=== PATIENT | female | born 1955 | race Two or more races ===

== ENCOUNTER 2023-03-27 21:37 | Inpatient (IN) | payer MEDICAID, OTHER ==
[~2023-03-27] VITALS: Ht 162.6 cm; Wt 53.4 kg
[2023-03-27 23:00] LABS: Basophils # (auto) 0 10 ^3/uL (0-0.2); Basophils % (auto) 0.8 % (0.0-2.0); Eosinophils # (auto) 0.1 10 ^3/uL (0-0.8); Eosinophils % (auto) 1.9 % (0.0-7.0); Hematocrit 31.5 % (36.0-46.0); Hemoglobin 10.4 g/dL (12.2-16.2); Mean Corpuscular Hemoglobin 28.3 pg (28.0-32.0); Mean Corpuscular Volume 85.8 fL (80.0-100.0); Monocytes # (auto) 0.3 10 ^3/uL (0-1.3); Monocytes % (auto) 5.6 % (0.0-12.0); Neutrophils # (auto) 4.4 10 ^3/uL (1.6-8.6); Neutrophils % (auto) 74.7 % (37.0-80.0); Nucleated Red Blood Cells % 0.1 %; Red Blood Cells 3.67 10^6/uL (4.0-5.20); Red Cell Distribution Width 14.3 % (11.8-14.3)
[2023-03-27 23:06] VITALS: PULSE 72; RESP 14; O2SAT 90
[2023-03-27 23:23] LABS: Alanine Aminotransferase 11 U/L (7-40); Albumin 2.9 g/dL (3.2-4.8); Alkaline Phosphatase 65 U/L (46-116); Anion Gap 8 (5-15); Aspartate Aminotransferase 17 U/L (13-40); BUN/Creatinine Ratio 17.2 (10.0-20.0); Bilirubin, Total 0.2 mg/dL (0.2-1.0); Blood Urea Nitrogen 28 mg/dL (9-23); Calcium 8.6 mg/dL (8.7-10.4); Carbon Dioxide 24 mmol/L (20-30); Chloride 110 mmol/L (98-107); Glucose 117 mg/dL (74-106); Magnesium 2.6 mg/dL (1.6-2.6); Potassium 4.4 mmol/L (3.5-5.1); Sodium 142 mmol/L (136-145); Total Protein 6.2 g/dL (5.7-8.2)
[2023-03-27 23:24] LABS: INR 1.06 (0.9-1.15); Partial Thromboplastin Time 30.9 SEC (24.5-34.5); Prothrombin Time 11.1 sec (9.3-11.8)
[2023-03-28] VITALS (8 sets, daily range): BP systolic 163–168; BP diastolic 72–78; PULSE 20–102; RESP 18–20; TEMP 98.1–98.7; O2SAT 94–98
[2023-03-28] MEDS ORDERED: DexAMETHasone SOD PHOS 10MG/1ML VIAL INJ IV ONE (01:30)
[2023-03-28] MEDS ORDERED: ALBUTEROL SULF 2.5 MG/0.5ML(0.5%) NEB SOLN NEB ONE (01:30)
[2023-03-28] MEDS ORDERED: FUROSEMIDE 40 MG/4 ML VIAL IV ONE ×2 (01:30→20:30)
[2023-03-28] MEDS ORDERED: ENOXAPARIN SOD 80 MG/0.8ML SYRINGE SC ONE (01:30)
[2023-03-28] MEDS ORDERED: IPRATROPIUM BROM 0.5 MG/2.5ML INH SOL NEB ONE (01:30)
[2023-03-28] MEDS ORDERED: PIPERACILLIN-TAZOB 3.375GM 100 ML IV ONE (01:30)
[2023-03-28] MEDS ORDERED: DEXTROSE (50%) 50ML SYRG IV PRN (04:15)
[2023-03-28] MEDS ORDERED: ONDANSETRON HCL 4 MG/2 ML VIAL IV PRN (04:15)
[2023-03-28] MEDS ORDERED: ALBUTEROL SULF 2.5 MG/0.5ML(0.5%) NEB SOLN NEB PRN (04:15)
[2023-03-28] MEDS ORDERED: ACETAMINOPHEN 325 MG TAB PO PRN (04:15)
[2023-03-28] MEDS ORDERED: MORPHINE SULFATE INJ 2 MG/ml SYRG IV PRN (04:15)
[2023-03-28] MEDS ORDERED: NITROGLYCERIN 0.4 MG SL TAB SL PRN (04:15)
[2023-03-28 05:40] LABS: Urine Bacteria NONE SEEN /hpf (None Seen); Urine Blood TRACE /uL (Negative); Urine Clarity Clear (Clear); Urine Color Colorless (Yellow); Urine Hyaline Cast FEW /lpf (0 - 2); Urine Protein, UAD 3+ (Negative); Urine Specific Gravity 1.016 (1.001-1.035); Urine Urobilinogen Normal (Negative); Urine WBC 1 /hpf (0 - 5)
[2023-03-28] MEDS: InsuLIN REG 1unit/0.01ml Soln (100units/ml) SC SCH ×4 (07:00→22:18)
[2023-03-28] MEDS: FUROSEMIDE 40 MG TAB PO SCH ×2 (07:03→18:51)
[2023-03-28] MEDS: hydrALAZINE HCL 25 MG TAB PO SCH ×2 (07:03→16:42)
[2023-03-28] MEDS: ACCU-CHEK COMFORT CURVE STRIP VI SCH ×4 (07:14→22:17)
[2023-03-28] MEDS: SPIRONOLACTONE 25 MG TAB PO SCH (11:27)
[2023-03-28] MEDS: LOSARTAN POTASSIUM 50 MG TAB PO SCH (11:28)
[2023-03-28] MEDS: LABETALOL HCL 200 MG TAB PO SCH ×2 (16:30→22:28)
[2023-03-28 18:29] LABS: COVID19 ANTIGEN SOFIA FIA NEGATIVE (NEGATIVE)
[2023-03-28 18:33] LABS: Rapid Influenza A Negative (Negative); Rapid Influenza B Negative (Negative)
[2023-03-28] MEDS ORDERED: hydrALAZINE HCL 20 MG/ML VL IV ONE (20:45)
[2023-03-28] MEDS ORDERED: ENOXAPARIN SOD 100 MG/1 ML SYRINGE SC SCH (22:00)
[2023-03-28] MEDS: hydrALAZINE HCL 20 MG/ML VL IV PRN (22:56)
[2023-03-29] VITALS (10 sets, daily range): BP systolic 130–173; BP diastolic 61–83; PULSE 74–82; RESP 14–18; TEMP 97.8–98.4; O2SAT 92–96
[2023-03-29] MEDS ORDERED: FUROSEMIDE 40 MG/4 ML VIAL IV SCH (06:00)
[2023-03-29 07:00] LABS: Basophils # (auto) 0 10 ^3/uL (0-0.2); Basophils % (auto) 0.7 % (0.0-2.0); Eosinophils # (auto) 0.1 10 ^3/uL (0-0.8); Hemoglobin 8.7 g/dL (12.2-16.2); Lymphocytes # (auto) 1.3 10 ^3/uL (0.4-5.4); Lymphocytes % (auto) 24.7 % (10.0-50.0); Mean Corpuscular Hemoglobin 28.5 pg (28.0-32.0); Mean Corpuscular Hgb Conc. 33.3 g/dL (32.0-36.0); Mean Corpuscular Volume 85.7 fL (80.0-100.0); Monocytes # (auto) 0.4 10 ^3/uL (0-1.3); Monocytes % (auto) 6.7 % (0.0-12.0); Neutrophils # (auto) 3.6 10 ^3/uL (1.6-8.6); Neutrophils % (auto) 66.9 % (37.0-80.0); Red Blood Cells 3.04 10^6/uL (4.0-5.20); Red Cell Distribution Width 14.2 % (11.8-14.3); White Blood Cell 5.4 10^3/uL (4.4-10.8)
[2023-03-29 07:02] LABS: Alanine Aminotransferase 13 U/L (7-40); Albumin 2.5 g/dL (3.2-4.8); Alkaline Phosphatase 53 U/L (46-116); Anion Gap 9 (5-15); Aspartate Aminotransferase 18 U/L (13-40); BUN/Creatinine Ratio 17.8 (10.0-20.0); Bilirubin, Total < 0.2 mg/dL (0.2-1.0); Blood Urea Nitrogen 30 mg/dL (9-23); Calcium 8.4 mg/dL (8.5-10.1); Carbon Dioxide 25 mmol/L (20-30); Chloride 111 mmol/L (98-107); Glucose 91 mg/dL (74-106); Potassium 3.6 mmol/L (3.5-5.1); Sodium 145 mmol/L (136-145); Total Protein 5.1 g/dL (5.7-8.2)
[2023-03-29] MEDS: InsuLIN REG 1unit/0.01ml Soln (100units/ml) SC SCH ×3 (08:13→21:39)
[2023-03-29] MEDS: ACCU-CHEK COMFORT CURVE STRIP VI SCH ×3 (08:13→21:35)
[2023-03-29] MEDS: SPIRONOLACTONE 25 MG TAB PO SCH (08:45)
[2023-03-29] MEDS: LABETALOL HCL 200 MG TAB PO SCH ×2 (08:45→21:34)
[2023-03-29] MEDS: LOSARTAN POTASSIUM 50 MG TAB PO SCH (08:45)
[2023-03-29] MEDS ORDERED: ENOXAPARIN SOD 40 MG/0.4 ML SYRINGE SC SCH (10:00)
[2023-03-29 14:48] LABS: Body Fluid Polymorphonuclear 8 % (0-25); Body Fluid Red Blood Cells 225 CUMM (0-2000); Body Fluid White Blood Cells 90 CUMM (0-200)
[2023-03-29] MEDS: hydrALAZINE HCL 20 MG/ML VL IV PRN (21:35)
[2023-03-30] VITALS (11 sets, daily range): BP systolic 108–186; BP diastolic 56–86; PULSE 72–99; RESP 14–18; TEMP 98–98.9; O2SAT 91–98
[2023-03-30] MEDS: hydrALAZINE HCL 20 MG/ML VL IV PRN ×3 (03:38→23:12)
[2023-03-30] MEDS: FUROSEMIDE 100 MG/10ML VIAL IV SCH ×2 (05:56→17:57)
[2023-03-30] MEDS: ACCU-CHEK COMFORT CURVE STRIP VI SCH ×4 (06:02→21:41)
[2023-03-30 06:26] LABS: Basophils # (auto) 0 10 ^3/uL (0-0.2); Basophils % (auto) 0.7 % (0.0-2.0); Eosinophils # (auto) 0.1 10 ^3/uL (0-0.8); Eosinophils % (auto) 1.9 % (0.0-7.0); Hematocrit 24.4 % (36.0-46.0); Hemoglobin 8.2 g/dL (12.2-16.2); Lymphocytes # (auto) 1.5 10 ^3/uL (0.4-5.4); Lymphocytes % (auto) 28.1 % (10.0-50.0); Mean Corpuscular Hemoglobin 28.7 pg (28.0-32.0); Mean Corpuscular Hgb Conc. 33.7 g/dL (32.0-36.0); Mean Corpuscular Volume 85.3 fL (80.0-100.0); Monocytes # (auto) 0.3 10 ^3/uL (0-1.3); Monocytes % (auto) 6.3 % (0.0-12.0); Neutrophils # (auto) 3.4 10 ^3/uL (1.6-8.6); Nucleated Red Blood Cells % 0.1 %; Red Blood Cells 2.86 10^6/uL (4.0-5.20); White Blood Cell 5.3 10^3/uL (4.4-10.8)
[2023-03-30 06:33] LABS: Anion Gap 11 (5-15); Carbon Dioxide 23 mmol/L (20-30); Chloride 110 mmol/L (98-107); Potassium 3.3 mmol/L (3.5-5.1); Sodium 144 mmol/L (136-145)
[2023-03-30 06:34] LABS: Calcium 8.3 mg/dL (8.5-10.1)
[2023-03-30] MEDS: InsuLIN REG 1unit/0.01ml Soln (100units/ml) SC SCH ×4 (06:34→21:41)
[2023-03-30 06:39] LABS: BUN/Creatinine Ratio 17.6 (10.0-20.0); Blood Urea Nitrogen 27 mg/dL (9-23); Glucose 89 mg/dL (74-106)
[2023-03-30] MEDS ORDERED: POTASSIUM EFFERVESENT TAB 25 MEQ PO ONE (08:00)
[2023-03-30] MEDS: ENOXAPARIN SOD 30 MG/0.3 ML SYRINGE SC SCH (09:02)
[2023-03-30] MEDS: LABETALOL HCL 200 MG TAB PO SCH ×2 (09:03→21:38)
[2023-03-30] MEDS: SPIRONOLACTONE 25 MG TAB PO SCH (09:03)
[2023-03-31] VITALS (7 sets, daily range): BP systolic 142–186; BP diastolic 61–81; PULSE 70–81; RESP 16–18; TEMP 97.8–98.3; O2SAT 94–98
[2023-03-31] MEDS ORDERED: LABE200T6 PO (04:58)
[2023-03-31] MEDS ORDERED: ASPI1CHW5 PO (04:58)
[2023-03-31] MEDS ORDERED: DONE5TAB80 PO (04:58)
[2023-03-31] MEDS ORDERED: ASPI-628 PO (04:58)
[2023-03-31] MEDS ORDERED: LOSA100T58 PO (04:58)
[2023-03-31] MEDS ORDERED: HYDR25TA87 PO (04:58)
[2023-03-31] MEDS ORDERED: SPIR25TA8 PO (04:58)
[2023-03-31] MEDS ORDERED: AMLO1TAB22 PO (04:58)
[2023-03-31] MEDS ORDERED: FURO40TA4 PO (04:58)
[2023-03-31] MEDS ORDERED: METF-370 PO (04:58)
[2023-03-31] MEDS: FUROSEMIDE 100 MG/10ML VIAL IV SCH ×2 (05:44→17:52)
[2023-03-31 06:06] LABS: Basophils # (auto) 0 10 ^3/uL (0-0.2); Basophils % (auto) 0.7 % (0.0-2.0); Eosinophils # (auto) 0.1 10 ^3/uL (0-0.8); Eosinophils % (auto) 2.6 % (0.0-7.0); Hematocrit 26.3 % (36.0-46.0); Hemoglobin 8.6 g/dL (12.2-16.2); Lymphocytes # (auto) 1.1 10 ^3/uL (0.4-5.4); Lymphocytes % (auto) 21.5 % (10.0-50.0); Mean Corpuscular Hemoglobin 27.8 pg (28.0-32.0); Mean Corpuscular Hgb Conc. 32.6 g/dL (32.0-36.0); Mean Corpuscular Volume 85.3 fL (80.0-100.0); Monocytes # (auto) 0.3 10 ^3/uL (0-1.3); Monocytes % (auto) 6.4 % (0.0-12.0); Neutrophils # (auto) 3.7 10 ^3/uL (1.6-8.6); Neutrophils % (auto) 68.8 % (37.0-80.0); Nucleated Red Blood Cells % 0.1 %; Red Blood Cells 3.08 10^6/uL (4.0-5.20); Red Cell Distribution Width 13.8 % (11.8-14.3); White Blood Cell 5.3 10^3/uL (4.4-10.8)
[2023-03-31 06:24] LABS: Calcium 8.3 mg/dL (8.5-10.1); Chloride 107 mmol/L (98-107); Potassium 3.5 mmol/L (3.5-5.1); Sodium 142 mmol/L (136-145)
[2023-03-31 06:25] LABS: Anion Gap 10 (5-15); Carbon Dioxide 25 mmol/L (20-30)
[2023-03-31 06:30] LABS: BUN/Creatinine Ratio 18.8 (10.0-20.0); Blood Urea Nitrogen 27 mg/dL (9-23); Glucose 97 mg/dL (74-106)
[2023-03-31] MEDS: InsuLIN REG 1unit/0.01ml Soln (100units/ml) SC SCH ×4 (07:00→22:17)
[2023-03-31] MEDS: ACCU-CHEK COMFORT CURVE STRIP VI SCH ×4 (07:00→22:08)
[2023-03-31] MEDS: SPIRONOLACTONE 25 MG TAB PO SCH (09:18)
[2023-03-31] MEDS: ENOXAPARIN SOD 30 MG/0.3 ML SYRINGE SC SCH (09:18)
[2023-03-31] MEDS: LABETALOL HCL 200 MG TAB PO SCH ×2 (09:19→22:08)
[2023-03-31] MEDS: hydrALAZINE HCL 20 MG/ML VL IV PRN ×2 (09:20→17:52)
[2023-03-31] MEDS ORDERED: metOLazone 5 MG TAB PO ONE (12:30)
[2023-03-31] MEDS: amLODIPine BESYLATE 5 MG TAB PO SCH (16:59)
[2023-03-31] MEDS: levoFLOXacin 250MG 50 ML IV SCH (16:59)
[2023-04-01] VITALS (11 sets, daily range): BP systolic 127–164; BP diastolic 70–78; PULSE 74–78; RESP 16–19; TEMP 97.8–98.5; O2SAT 92–98
[2023-04-01] MEDS: FUROSEMIDE 100 MG/10ML VIAL IV SCH ×2 (05:09→17:27)
[2023-04-01] MEDS: hydrALAZINE HCL 20 MG/ML VL IV PRN (05:10)
[2023-04-01] MEDS: ACCU-CHEK COMFORT CURVE STRIP VI SCH ×4 (06:11→21:40)
[2023-04-01] MEDS: InsuLIN REG 1unit/0.01ml Soln (100units/ml) SC SCH ×4 (06:11→21:44)
[2023-04-01 06:43] LABS: Basophils # (auto) 0 10 ^3/uL (0-0.2); Basophils % (auto) 0.6 % (0.0-2.0); Eosinophils # (auto) 0.2 10 ^3/uL (0-0.8); Eosinophils % (auto) 3.5 % (0.0-7.0); Hematocrit 25.9 % (36.0-46.0); Hemoglobin 8.6 g/dL (12.2-16.2); Lymphocytes # (auto) 1.2 10 ^3/uL (0.4-5.4); Lymphocytes % (auto) 28.5 % (10.0-50.0); Mean Corpuscular Hemoglobin 28.1 pg (28.0-32.0); Mean Corpuscular Hgb Conc. 33.4 g/dL (32.0-36.0); Mean Corpuscular Volume 84.2 fL (80.0-100.0); Monocytes # (auto) 0.3 10 ^3/uL (0-1.3); Monocytes % (auto) 7.1 % (0.0-12.0); Neutrophils # (auto) 2.6 10 ^3/uL (1.6-8.6); Neutrophils % (auto) 60.3 % (37.0-80.0); Nucleated Red Blood Cells % 0.1 %; Red Blood Cells 3.07 10^6/uL (4.0-5.20); Red Cell Distribution Width 13.6 % (11.8-14.3); White Blood Cell 4.3 10^3/uL (4.4-10.8)
[2023-04-01 08:51] LABS: Albumin 2.6 g/dL (3.2-4.8); Alkaline Phosphatase 52 U/L (46-116); Anion Gap 8 (5-15); Aspartate Aminotransferase 14 U/L (13-40); BUN/Creatinine Ratio 18.1 (10.0-20.0); Blood Urea Nitrogen 26 mg/dL (9-23); Calcium 8.1 mg/dL (8.7-10.4); Carbon Dioxide 27 mmol/L (20-30); Chloride 105 mmol/L (98-107); Glucose 102 mg/dL (74-106); Potassium 3.4 mmol/L (3.5-5.1); Sodium 140 mmol/L (136-145)
[2023-04-01 08:52] LABS: Bilirubin, Total < 0.2 mg/dL (0.2-1.0)
[2023-04-01] MEDS ORDERED: cefTRIAXone 1GM/50ML D5W 50 ML IV SCH (09:00)
[2023-04-01] MEDS: SPIRONOLACTONE 25 MG TAB PO SCH (09:03)
[2023-04-01] MEDS: LABETALOL HCL 200 MG TAB PO SCH ×2 (09:04→21:40)
[2023-04-01] MEDS: amLODIPine BESYLATE 5 MG TAB PO SCH (09:04)
[2023-04-01] MEDS: ENOXAPARIN SOD 30 MG/0.3 ML SYRINGE SC SCH (09:04)
[2023-04-01] MEDS: levoFLOXacin 250MG 50 ML IV SCH (09:05)
[2023-04-01] MEDS: POTASSIUM CHL 10 Meq TABLET PO SCH (09:06)
[2023-04-01 09:10] LABS: Alanine Aminotransferase < 9 U/L (7-40)
[2023-04-01] MEDS ORDERED: levoFLOXacin 250MG 50 ML IV SCH (10:00)
[2023-04-01] MEDS ORDERED: POTASSIUM EFFERVESENT TAB 25 MEQ PO ONE ×2 (10:45→11:00)
[2023-04-01] MEDS ORDERED: HYDROcodone-ACET 5/325MG TAB PO PRN (14:00)
[2023-04-01] MEDS ORDERED: MORPHINE SULFATE INJ 2 MG/ml SYRG IV PRN (14:00)
[2023-04-02] VITALS (8 sets, daily range): BP systolic 130–174; BP diastolic 61–76; PULSE 75–78; RESP 15–18; TEMP 97.7–98.9; O2SAT 93–97
[2023-04-02 05:59] LABS: Basophils # (auto) 0 10 ^3/uL (0-0.2); Basophils % (auto) 0.5 % (0.0-2.0); Eosinophils # (auto) 0.1 10 ^3/uL (0-0.8); Eosinophils % (auto) 2.9 % (0.0-7.0); Hematocrit 25.5 % (36.0-46.0); Hemoglobin 8.5 g/dL (12.2-16.2); Lymphocytes # (auto) 1.4 10 ^3/uL (0.4-5.4); Lymphocytes % (auto) 27.7 % (10.0-50.0); Mean Corpuscular Hgb Conc. 33.1 g/dL (32.0-36.0); Mean Corpuscular Volume 84.6 fL (80.0-100.0); Monocytes # (auto) 0.4 10 ^3/uL (0-1.3); Monocytes % (auto) 7.4 % (0.0-12.0); Neutrophils # (auto) 3.1 10 ^3/uL (1.6-8.6); Neutrophils % (auto) 61.5 % (37.0-80.0); Red Blood Cells 3.02 10^6/uL (4.0-5.20); Red Cell Distribution Width 13.5 % (11.8-14.3)
[2023-04-02] MEDS: ACCU-CHEK COMFORT CURVE STRIP VI SCH ×4 (06:01→21:24)
[2023-04-02] MEDS: InsuLIN REG 1unit/0.01ml Soln (100units/ml) SC SCH ×4 (06:01→21:25)
[2023-04-02] MEDS: FUROSEMIDE 100 MG/10ML VIAL IV SCH ×2 (06:01→17:49)
[2023-04-02 06:12] LABS: Chloride 101 mmol/L (98-107); Potassium 4.1 mmol/L (3.5-5.1); Sodium 137 mmol/L (136-145)
[2023-04-02 06:13] LABS: Anion Gap 5 (5-15); Calcium 8.3 mg/dL (8.7-10.4); Carbon Dioxide 31 mmol/L (20-30)
[2023-04-02 06:18] LABS: BUN/Creatinine Ratio 16.7 (10.0-20.0); Blood Urea Nitrogen 25 mg/dL (9-23); Glucose 108 mg/dL (74-106)
[2023-04-02] MEDS: SPIRONOLACTONE 25 MG TAB PO SCH (08:28)
[2023-04-02] MEDS: levoFLOXacin 250MG 50 ML IV SCH (08:28)
[2023-04-02] MEDS: metOLazone 5 MG TAB PO SCH (08:28)
[2023-04-02] MEDS: amLODIPine BESYLATE 5 MG TAB PO SCH (08:29)
[2023-04-02] MEDS: LABETALOL HCL 200 MG TAB PO SCH ×2 (08:29→21:26)
[2023-04-02] MEDS: Juven Orange Powder PACKET 27.5gm PO SCH (08:33)
[2023-04-02] MEDS: POTASSIUM CHL 10 Meq TABLET PO SCH (08:33)
[2023-04-02] MEDS: ENOXAPARIN SOD 30 MG/0.3 ML SYRINGE SC SCH (08:46)
[2023-04-02] MEDS: hydrALAZINE HCL 20 MG/ML VL IV PRN (12:18)
[2023-04-03] VITALS (9 sets, daily range): BP systolic 110–166; BP diastolic 49–82; PULSE 77–81; RESP 16–18; TEMP 98–98.5; O2SAT 91–100
[2023-04-03] MEDS: ACCU-CHEK COMFORT CURVE STRIP VI SCH ×4 (06:15→21:18)
[2023-04-03] MEDS: FUROSEMIDE 100 MG/10ML VIAL IV SCH ×2 (06:15→17:37)
[2023-04-03] MEDS: InsuLIN REG 1unit/0.01ml Soln (100units/ml) SC SCH ×4 (06:17→21:18)
[2023-04-03 06:30] LABS: Anion Gap 5 (5-15); Carbon Dioxide 34 mmol/L (20-30); Chloride 98 mmol/L (98-107); Potassium 3.3 mmol/L (3.5-5.1); Sodium 137 mmol/L (136-145)
[2023-04-03 06:32] LABS: Basophils # (auto) 0 10 ^3/uL (0-0.2); Basophils % (auto) 0.2 % (0.0-2.0); Eosinophils # (auto) 0.1 10 ^3/uL (0-0.8); Eosinophils % (auto) 0.5 % (0.0-7.0); Hematocrit 27.2 % (36.0-46.0); Hemoglobin 9.1 g/dL (12.2-16.2); Lymphocytes # (auto) 0.9 10 ^3/uL (0.4-5.4); Mean Corpuscular Hemoglobin 28.1 pg (28.0-32.0); Mean Corpuscular Hgb Conc. 33.7 g/dL (32.0-36.0); Mean Corpuscular Volume 83.6 fL (80.0-100.0); Monocytes # (auto) 0.8 10 ^3/uL (0-1.3); Monocytes % (auto) 5.6 % (0.0-12.0); Neutrophils # (auto) 13.2 10 ^3/uL (1.6-8.6); Neutrophils % (auto) 87.7 % (37.0-80.0); Red Blood Cells 3.25 10^6/uL (4.0-5.20); Red Cell Distribution Width 13.5 % (11.8-14.3); White Blood Cell 15.1 10^3/uL (4.4-10.8)
[2023-04-03 06:36] LABS: BUN/Creatinine Ratio 18.6 (10.0-20.0); Blood Urea Nitrogen 29 mg/dL (9-23); Glucose 94 mg/dL (74-106)
[2023-04-03] MEDS ORDERED: POTASSIUM EFFERVESENT TAB 25 MEQ PO ONE (08:15)
[2023-04-03] MEDS: amLODIPine BESYLATE 5 MG TAB PO SCH (09:30)
[2023-04-03] MEDS: metOLazone 5 MG TAB PO SCH (09:30)
[2023-04-03] MEDS: SPIRONOLACTONE 25 MG TAB PO SCH (09:31)
[2023-04-03] MEDS: POTASSIUM CHL 10 Meq TABLET PO SCH (09:31)
[2023-04-03] MEDS: ENOXAPARIN SOD 30 MG/0.3 ML SYRINGE SC SCH (09:31)
[2023-04-03] MEDS: LABETALOL HCL 200 MG TAB PO SCH ×3 (09:31→21:16)
[2023-04-03] MEDS: levoFLOXacin 250MG 50 ML IV SCH (09:31)
[2023-04-03] MEDS: Juven Orange Powder PACKET 27.5gm PO SCH (09:31)
[2023-04-03] MEDS ORDERED: LEVO750T40 PO ×2 (10:38)
[2023-04-03] MEDS ORDERED: FURO1TAB31 PO (10:38)
[2023-04-04 05:00] VITALS: BP 138/62; PULSE 74; RESP 16; TEMP 97.8; O2SAT 96
[2023-04-04] MEDS: FUROSEMIDE 100 MG/10ML VIAL IV SCH ×2 (05:23→17:52)
[2023-04-04] MEDS: LABETALOL HCL 200 MG TAB PO SCH ×3 (05:24→22:07)
[2023-04-04] MEDS: InsuLIN REG 1unit/0.01ml Soln (100units/ml) SC SCH ×4 (05:30→22:00)
[2023-04-04] MEDS: ACCU-CHEK COMFORT CURVE STRIP VI SCH ×4 (05:32→22:08)
[2023-04-04 07:01] LABS: Chloride 96 mmol/L (98-107); Sodium 136 mmol/L (136-145)
[2023-04-04 07:02] LABS: Anion Gap 6 (5-15); Carbon Dioxide 34 mmol/L (20-30)
[2023-04-04 07:03] LABS: Calcium 8.9 mg/dL (8.5-10.1)
[2023-04-04 07:04] LABS: Basophils # (auto) 0 10 ^3/uL (0-0.2); Basophils % (auto) 0.3 % (0.0-2.0); Eosinophils % (auto) 0.3 % (0.0-7.0); Hemoglobin 8.4 g/dL (12.2-16.2); Lymphocytes # (auto) 1.4 10 ^3/uL (0.4-5.4); Mean Corpuscular Volume 83.4 fL (80.0-100.0); Monocytes # (auto) 0.6 10 ^3/uL (0-1.3)
[2023-04-04 07:06] LABS: Eosinophils # (auto) 0 10 ^3/uL (0-0.8); Hematocrit 25.3 % (36.0-46.0); Lymphocytes % (auto) 8.3 % (10.0-50.0); Mean Corpuscular Hemoglobin 27.7 pg (28.0-32.0); Mean Corpuscular Hgb Conc. 33.2 g/dL (32.0-36.0); Monocytes % (auto) 3.9 % (0.0-12.0); Neutrophils # (auto) 14.2 10 ^3/uL (1.6-8.6); Neutrophils % (auto) 87.2 % (37.0-80.0); Red Blood Cells 3.03 10^6/uL (4.0-5.20); Red Cell Distribution Width 13.4 % (11.8-14.3); White Blood Cell 16.3 10^3/uL (4.4-10.8)
[2023-04-04 07:07] LABS: BUN/Creatinine Ratio 16.9 (10.0-20.0); Blood Urea Nitrogen 28 mg/dL (9-23); Glucose 80 mg/dL (74-106)
[2023-04-04 08:00] VITALS: PULSE 75; RESP 18; O2SAT 94
[2023-04-04] MEDS ORDERED: POTASSIUM EFFERVESENT TAB 25 MEQ PO ONE (08:45)
[2023-04-04 09:00] VITALS: BP 140/64; PULSE 75; RESP 18; TEMP 99; O2SAT 94
[2023-04-04] MEDS: ENOXAPARIN SOD 30 MG/0.3 ML SYRINGE SC SCH (10:40)
[2023-04-04] MEDS: SPIRONOLACTONE 25 MG TAB PO SCH (10:41)
[2023-04-04] MEDS: POTASSIUM CHL 10 Meq TABLET PO SCH (10:41)
[2023-04-04] MEDS: Juven Orange Powder PACKET 27.5gm PO SCH (10:41)
[2023-04-04 11:11] LABS: Base Excess 7.1 mmol/L (-2.0-2.0)
[2023-04-04 12:30] VITALS: BP 150/71; PULSE 74; RESP 17; TEMP 98.5; O2SAT 97
[2023-04-04 13:02] LABS: Protein, Urine 169.9 mg/dL (0.0-11.9)
[2023-04-04 13:04] LABS: Creatinine, Urine 23.44 mg/dL (30.0-125.0)
[2023-04-04 16:40] VITALS: BP 149/70; PULSE 75; RESP 17; TEMP 98.7; O2SAT 95
[2023-04-04 22:00] VITALS: BP 150/67; PULSE 74; RESP 16; TEMP 98.5; O2SAT 92
[2023-04-05 05:00] VITALS: BP 160/64; PULSE 75; RESP 14; TEMP 97.9; O2SAT 93
[2023-04-05] MEDS ORDERED: VANCOMYCIN HCL 125 MG CAP PO ONE (06:45)
[2023-04-05] MEDS: LABETALOL HCL 200 MG TAB PO SCH ×2 (06:48→14:07)
[2023-04-05] MEDS: FUROSEMIDE 100 MG/10ML VIAL IV SCH (06:49)
[2023-04-05] MEDS: ACCU-CHEK COMFORT CURVE STRIP VI SCH ×2 (06:51→11:30)
[2023-04-05] MEDS: InsuLIN REG 1unit/0.01ml Soln (100units/ml) SC SCH ×2 (06:51→12:20)
[2023-04-05 06:53] LABS: Anion Gap 10 (5-15); Basophils # (auto) 0 10 ^3/uL (0-0.2); Basophils % (auto) 0.3 % (0.0-2.0); Carbon Dioxide 32 mmol/L (20-30); Chloride 94 mmol/L (98-107); Eosinophils # (auto) 0.1 10 ^3/uL (0-0.8); Eosinophils % (auto) 1.3 % (0.0-7.0); Hematocrit 27.6 % (36.0-46.0); Hemoglobin 9.3 g/dL (12.2-16.2); Lymphocytes # (auto) 1.2 10 ^3/uL (0.4-5.4); Lymphocytes % (auto) 10.9 % (10.0-50.0); Mean Corpuscular Hemoglobin 28.2 pg (28.0-32.0); Mean Corpuscular Hgb Conc. 33.7 g/dL (32.0-36.0); Mean Corpuscular Volume 83.8 fL (80.0-100.0); Monocytes # (auto) 0.5 10 ^3/uL (0-1.3); Monocytes % (auto) 4.9 % (0.0-12.0); Neutrophils # (auto) 8.8 10 ^3/uL (1.6-8.6); Neutrophils % (auto) 82.6 % (37.0-80.0); Potassium 2.9 mmol/L (3.5-5.1); Red Blood Cells 3.29 10^6/uL (4.0-5.20); Red Cell Distribution Width 13.4 % (11.8-14.3); Sodium 136 mmol/L (136-145); White Blood Cell 10.7 10^3/uL (4.4-10.8)
[2023-04-05 06:59] LABS: Glucose 73 mg/dL (74-106)
[2023-04-05 07:00] LABS: BUN/Creatinine Ratio 14.4 (10.0-20.0); Blood Urea Nitrogen 24 mg/dL (9-23)
[2023-04-05 09:00] VITALS: BP 137/59; PULSE 70; RESP 20; TEMP 98.1; O2SAT 95
[2023-04-05] MEDS ORDERED: POTASSIUM CHL 20MEQ/100ML 100 ML IV ONE (09:30)
[2023-04-05] MEDS: SPIRONOLACTONE 25 MG TAB PO SCH (09:38)
[2023-04-05] MEDS: ENOXAPARIN SOD 30 MG/0.3 ML SYRINGE SC SCH (09:38)
[2023-04-05] MEDS: Juven Orange Powder PACKET 27.5gm PO SCH (09:44)
[2023-04-05] MEDS: POTASSIUM CHL 10 Meq TABLET PO SCH (10:08)
[2023-04-05] MEDS ORDERED: VANC125C3 PO (10:20)
[2023-04-05] MEDS ORDERED: VANCOMYCIN HCL 125 MG CAP PO SCH (12:00)
[2023-04-05 13:00] VITALS: BP_SYST 146; BP_SYST 153; BP_DIAS 62; BP_DIAS 76; PULSE 67; RESP 16; TEMP 97.4; O2SAT 97
[2023-04-05] MEDS ORDERED: POTA-220 PO (13:04)
[2023-04-06] MEDS ORDERED: FUROSEMIDE 100 MG/10ML VIAL IV SCH (10:00)
== END 2023-04-05 17:02 | disposition home or self-care (01) | DRG 194 ==
LOC: ER 21:37 → EDBD 21:37 → TELE 03-28 04:02 → TELE-WESTW 03-28 22:40 → WEST WING 04-02 12:46
PROVIDERS: ADMIT Internal Medicine Pulmonary Disease; ATTEND Internal Medicine Pulmonary Disease
PROC: 0W993ZZ Drainage of Right Pleural Cavity, Percutaneous Approach (ICD-10-PCS; principal; 2023-03-29)
PROC: BB4BZZZ Ultrasonography of Pleura (ICD-10-PCS; 2023-03-29)
DX: I13.0 Hypertensive heart and chronic kidney disease with heart failure and stage 1 through stage 4 chronic kidney disease, or unspecified chronic kidney disease (principal); J96.01 Acute respiratory failure with hypoxia; I31.39 Other pericardial effusion (noninflammatory); N17.9 Acute kidney failure, unspecified; E87.3 Alkalosis; J91.8 Pleural effusion in other conditions classified elsewhere; E11.22 Type 2 diabetes mellitus with diabetic chronic kidney disease; D64.9 Anemia, unspecified; I50.33 Acute on chronic diastolic (congestive) heart failure; D72.829 Elevated white blood cell count, unspecified; E11.40 Type 2 diabetes mellitus with diabetic neuropathy, unspecified; E11.51 Type 2 diabetes mellitus with diabetic peripheral angiopathy without gangrene; N18.32 Chronic kidney disease, stage 3b; E78.5 Hyperlipidemia, unspecified; Z79.899 Other long term (current) drug therapy; Z82.49 Family history of ischemic heart disease and other diseases of the circulatory system; Z83.3 Family history of diabetes mellitus; Z89.421 Acquired absence of other right toe(s)
CPT/HCPCS: 36415; 36600; 71045; 71250; 76604; 76775; 76942; 78582; 80048; 80053; 81001; 82570; 82805; 82962; 83605; 83735; 83880; 83986; 84156; 84439; 84443; 84484; 85025; 85379; 85610; 85730; 87081; 87205; 87426; 87493; 87804; 89051; 93005; 93306; 93970; 94640; 97110; 97116; 97163; 97530; 99291; G0378; J1100; J1815; J2405; J2543; J3480